=== PATIENT | female | born 1945 | race Caucasian/White ===

== ENCOUNTER 2017-10-26 16:16 | Emergency (ER) | payer OTHER ==
[2017-10-26] MEDS: TETRACAINE 0.5% OPHTH SOLUTION 4ML BOTTLE. OS (16:45)
[2017-10-26] MEDS: FLUORESCEIN OPHTH TEST STRIP. OS (16:45)
[2017-10-26] MEDS: ERYTHROMYCIN 0.5% OPHTH OINTMENT 1GM TUBE. OS (17:45)
== END 2017-10-26 17:47 | disposition home or self-care (01) ==
LOC: ER 17:47
DX: S05.02XA Injury of conjunctiva and corneal abrasion without foreign body, left eye, initial encounter (principal); E03.9 Hypothyroidism, unspecified; E11.9 Type 2 diabetes mellitus without complications; X58.XXXA Exposure to other specified factors, initial encounter; Y93.89 Activity, other specified; Y99.8 Other external cause status; Y92.89 Other specified places as the place of occurrence of the external cause
CPT/HCPCS: 99284

== ENCOUNTER 2019-12-29 22:25 | Emergency (ER) | payer MEDICARE, OTHER ==
[~2019-12-29] VITALS: Ht 170.2 cm; Wt 80.4 kg
[~2019-12-29 22:25] MED LIST: ERYT1OIN6 OP
--- NOTE | 2019-12-29 22:42 | PHYS DOC ---
Past Medical History Past Medical History: Depression, Diabetes-Type II, Hypothyroid Past Surgical History: Hysterectomy, Knee Replacement Additional Past Surgical Histo: R knee replaced Smoking Status: Never Smoker Alcohol Use: None Drug Use: None General Adult EDM: Chief Complaint: MECHANICAL FALL HPI: HPI: 74-year-old female with significant history of hypertension, hyperlipidemia, diabetes mellitus, who presents for evaluation of occipital head injury status post mechanical fall. The patient was attempting to walk up her basement steps, but lost her footing and fell backwards, striking her occiput against the ground. No LOC. Reports occipital head pain. She had a an occipital scalp contusion, with transient bleeding, now hemostatic. No anticoagulant use, though takes daily baby aspirin. No blurry vision, neck pain or stiffness, chest pain, abdominal pain, neck or back pain, or extremity pain. She does note some right-sided jaw pain, previously bilateral, though the left-sided jaw pain has since improved. Review of Systems: Review of Systems: Gen: No fever, chills. Eyes: No blurred vision, diplopia. ENT: No facial pain, epistaxis. Reports right-sided jaw pain. CV: No CP, syncope. Resp. No SOB, cough. GI: No abd pain, N/V. : No perineal pain, hematuria. Neuro: No dizziness, weakness. Reports head pain. MSK: No myalgia, arthralgia, back pain. Skin: Reports scalp injury. Heart Score: Risk Factors: Risk Factors: DM, Current or recent (<one month) smoker, HTN, HLP, family history of CAD, obesity. Risk Scores: Score 0 - 3: 2.5% MACE over next 6 weeks - Discharge Home Score 4 - 6: 20.3% MACE over next 6 weeks - Admit for Clinical Observation Score 7 - 10: 72.7% MACE over next 6 weeks - Early Invasive Strategies Allergies: Allergies: Allergies Coded Allergies Type Severity Reaction Last Updated Verified No Known Drug Allergies 10/26/17 No Physical Exam: PE: Gen: NAD. Well nourished. Head: Normocephalic. Occipital scalp contusion without gaping laceration, currently hemostatic. Eyes: No scleral icterus. No conjunctival injection. PERRL. ENT: MMM. Posterior OP clear. No epistaxis or septal hematoma. No focal jaw tenderness. No intraoral lesions. Neck: Supple. NT. Full AROM. CV: RRR. Peripheral pulses intact. Resp: CTAB. Chest: No anterior chest wall TTP. Symmetric chest rise. Abd: Soft. NT. ND. MSK: No peripheral cyanosis. No edema. Extremities atraumatic x4. Back: No midline spinal TTP or stepoffs. Neuro: A&Ox3. Strength & sensation grossly intact throughout. GCS 15. Skin. Warm. Dry. Psych: Appropriate mood & affect. EKG: EKG: [] Radiology/Procedures: Radiology/Procedures: CT HEAD AND CERVICAL SPINE WO, CT MAXILLOFACIAL WO CONTRAST History: Reason: Fall, occipital head injury / Spl. Instructions: / History: . Pain Comparison: None. Technique: Noncontrast CT imaging was performed of the head, maxillofacial and cervical spine. Coronal and sagittal reconstructions were performed. Exposure: One or more of the following individualized dose reduction techniques were utilized for this examination: 1. Automated exposure control 2. Adjustment of the mA and/or kV according to patient size 3. Use of iterative reconstruction technique. Findings: Head CT: No intracranial hemorrhage. No mass effect. No hydrocephalus. Mild brain parenchymal volume loss. Mild foci of decreased attenuation within the hemispheric white matter, most often due to chronic microvascular ischemia. Posterior scalp soft tissue swelling and small hematoma. Maxillofacial CT: No acute maxillofacial fracture. Orbits are unremarkable. Minimal right inferior maxillary sinus mucosal thickening. Mastoid air cells are clear. No acute calvarial fracture. Cervical spine CT: Normal vertebral body height. Normal alignment. No fracture. Mild multilevel degenerative disc changes and moderate facet arthropathy. Right C4-C5 facet joint fusion. Multilevel neuroforaminal narrowing, right greater than left. No high-grade canal stenosis. Soft tissues are unremarkable. Impression: Head CT: 1. No acute intracranial abnormality. 2. Posterior scalp soft tissue swelling and hematoma. Maxillofacial CT: 1. No acute maxillofacial fracture. Cervical spine CT: 1. No acute fracture or subluxation of the cervical spine. 2. Multilevel cervical spondylosis. Course & Med Decision Making: Course & Med Decision Making Pertinent Labs and Imaging studies reviewed. (See chart for details) In summary, 74-year-old female on no anticoagulation, who presents for evaluation mechanical fall, occipital scalp contusion, but no LOC. No gross focal neurological deficits. Occipital scalp contusion without gaping laceration requiring primary repair. No other outward signs of injury. No gross focal neurological deficits. No meningismus. She also reports some jaw pain, though has unremarkable maxillofacial examination. CT head, cervical spine, maxillofacial negative for acute traumatic pathology. She remains well- appearing nontoxic. She will discharged home with outpatient follow-up. Return precautions given. Robby Disclaimer: Robby Disclaimer: This electronic medical record was generated, in whole or in part, using a voice recognition dictation system. Departure Departure Impression: Primary Impression: Head injury Additional Impressions: Scalp contusion Contusion of jaw Disposition: 01 HOME, SELF-CARE Condition: STABLE Referrals: PILI AUSTIN MD (PCP) Patient Instructions: Head Injury, Adult, [id number] Additional Instructions: Take tylenol 650 mg every 6 hours as needed for pain. Justicifation of Admission Dx: Justifications for Admission: Justification of Admission Dx: N/A JOSUE YEE DO Dec 29, 2019 22:42
--- NOTE | 2019-12-29 23:23 | RAD ---
CT HEAD AND CERVICAL SPINE WO, CT MAXILLOFACIAL WO CONTRAST History: Reason: Fall, occipital head injury / Spl. Instructions: / History: . Pain Comparison: None. Technique: Noncontrast CT imaging was performed of the head, maxillofacial and cervical spine. Coronal and sagittal reconstructions were performed. Exposure: One or more of the following individualized dose reduction techniques were utilized for this examination: 1. Automated exposure control 2. Adjustment of the mA and/or kV according to patient size 3. Use of iterative reconstruction technique. Findings: Head CT: No intracranial hemorrhage. No mass effect. No hydrocephalus. Mild brain parenchymal volume loss. Mild foci of decreased attenuation within the hemispheric white matter, most often due to chronic microvascular ischemia. Posterior scalp soft tissue swelling and small hematoma. Maxillofacial CT: No acute maxillofacial fracture. Orbits are unremarkable. Minimal right inferior maxillary sinus mucosal thickening. Mastoid air cells are clear. No acute calvarial fracture. Cervical spine CT: Normal vertebral body height. Normal alignment. No fracture. Mild multilevel degenerative disc changes and moderate facet arthropathy. Right C4-C5 facet joint fusion. Multilevel neuroforaminal narrowing, right greater than left. No high-grade canal stenosis. Soft tissues are unremarkable. Impression: Head CT: 1. No acute intracranial abnormality. 2. Posterior scalp soft tissue swelling and hematoma. Maxillofacial CT: 1. No acute maxillofacial fracture. Cervical spine CT: 1. No acute fracture or subluxation of the cervical spine. 2. Multilevel cervical spondylosis. Electronically signed by: Surinder Kowalski DO (12/29/2019 11:20 PM) [facility] [place]
[2019-12-30 00:17] VITALS: BP 169/82
[2019-12-30] MEDS ORDERED: DIPH,PERTUSS(ACELL),TET VAC/PF 0.5 ML SYRINGE. VAX IM ONE (00:30)
== END 2019-12-30 00:17 | disposition home or self-care (01) ==
LOC: ER 22:25
DX: S00.03XA Contusion of scalp, initial encounter (principal); S00.83XA Contusion of other part of head, initial encounter; S09.8XXA Other specified injuries of head, initial encounter; R68.84 Jaw pain; R60.0 Localized edema; F32.9 Major depressive disorder, single episode, unspecified; E11.9 Type 2 diabetes mellitus without complications; E03.9 Hypothyroidism, unspecified; Z90.710 Acquired absence of both cervix and uterus; Z98.890 Other specified postprocedural states; W18.39XA Other fall on same level, initial encounter; Y93.89 Activity, other specified; Y92.89 Other specified places as the place of occurrence of the external cause; Y99.8 Other external cause status
CPT/HCPCS: 70450; 70486; 72125; 90471; 90715; 99285